=== PATIENT | male | born 1945 | race Caucasian/White ===

== ENCOUNTER 2018-07-11 11:37 | Emergency (ER) | payer OTHER, MEDICAID ==
[~2018-07-11] VITALS: Ht 177.8 cm; Wt 89.8 kg
[~2018-07-11 11:37] MED LIST: ACET-2154 PO; ASPI-605 PO; ATOR10TA PO; BENA20TA9 PO; CHOL20004 PO; METF-495 PO; METO50TA16 PO
[2018-07-11 12:16] LABS: *BILIRUBIN,URIN NEGATIVE (NEGATIVE); *BLOOD, URINE NEGATIVE (NEGATIVE); *CLARITY,URINE CLEAR (CLEAR); *COLOR,URINE YELLOW (YELLOW); *KETONES,URINE NEGATIVE (NEGATIVE); LEUKOCYTE ESTERASE ,URINE TRACE (NEGATIVE); NITRITE, URINE NEGATIVE (NEGATIVE); PH,URINE 8.5 (5.0-8.0); UGLUCOSE NEGATIVE (NEGATIVE)
[2018-07-11 12:18] LABS: BASOPHILS # (AUTO) 0.1 K/uL (0.0-8.0); BASOPHILS % (AUTO) 1.2 % (0.0-2.0); EOSINOPHILS # (AUTO) 0.1 K/uL (0.0-0.7); EOSINOPHILS % (AUTO) 0.8 % (0.0-7.0); HEMATOCRIT 43.9 % (36.7-47.1); HEMOGLOBIN 15.2 g/dL (12.5-16.3); LYMPHOCYTES # (AUTO) 2.8 K/uL (20.0-40.0); LYMPHOCYTES % (AUTO) 28.8 % (20.5-51.5); MEAN CORPUSCULAR HEMOGLOBIN 31.5 uug (23.8-33.4); MEAN CORPUSCULAR HGB CONC 35 g/dL (32.5-36.3); MEAN CORPUSCULAR VOLUME 91.4 fL (73.0-96.2); MONOCYTES # (AUTO) 1.2 K/uL (2.0-10.0); NEUTROPHILS # (AUTO) 5.6 K/uL (1.8-8.9); NEUTROPHILS % (AUTO) 57.2 % (38.5-71.5); PLATELET COUNT (AUTO) 159 K/uL (152-348); RED BLOOD CELL COUNT(AUTO) 4.81 MIL/uL (4.06-5.63); WHITE BLOOD COUNT (AUTO) 9.8 K/uL (3.6-10.2)
[2018-07-11 12:19] LABS: CARBON DIOXIDE 30 mmol/L (21-32); CHLORIDE 96 mmol/L (98-107); GLUCOSE 92 mg/dL (74-106); POTASSIUM 3.3 mmol/L (3.5-5.1); UREA NITROGEN, BLOOD 10 mg/dL (7-18)
--- NOTE | 2018-07-11 12:19 | NUR ---
PT IS IN ROOM #2B. DR KIRKPATRICK EVALUATED THE PT.
[2018-07-11 12:25] LABS: BACTERIA,URINE FEW /HPF (NONE SEEN); RBC,URINE NONE SEEN /HPF (0-3); SQUAMOUS EPITHELIAL CELL,UR FEW /HPF (NONE SEEN); WBC,URINE 0-3 /HPF (0-3)
[2018-07-11 12:25] LABS: ALANINE AMINOTRANSFERASE 42 U/L (16-63); ALKALINE PHOSPHATASE 51 U/L (50-136); ASPARTATE AMINOTRANSFERASE 22 U/L (15-37); BILIRUBIN,DIRECT 0.2 mg/dL (0.0-0.2); BILIRUBIN,TOTAL 0.6 mg/dL (0.2-1.0); LIPASE 164 U/L (73-393); TOTAL PROTEIN, SERUM 7.8 g/dL (6.4-8.2)
[2018-07-11] MEDS ORDERED: LISI1TAB11 PO (12:34)
[2018-07-11] MEDS ORDERED: GABA-532 PO (12:34)
[2018-07-11] MEDS ORDERED: GLIP5TAB13 PO (12:34)
[2018-07-11] MEDS ORDERED: LEVOFLOXACIN 500 MG TABLET ONE (14:58)
[2018-07-11] MEDS ORDERED: METRONIDAZOLE 500 MG TABLET ONE (14:58)
[2018-07-11] MEDS ORDERED: LEVOFLOXACIN 500 MG TABLET PO ONE (15:00)
[2018-07-11] MEDS ORDERED: METRONIDAZOLE 500 MG TABLET PO ONE (15:00)
--- NOTE | 2018-07-11 15:05 | NUR ---
PT WAS D/C'd TO HOME. D/C INSTRUCTIONS GIVEN TO THE PT.
[2018-07-11 15:06] VITALS: BP 149/87
== END 2018-07-11 15:07 | disposition home or self-care (01) ==
LOC: ER 11:41
DX: K57.32 Diverticulitis of large intestine without perforation or abscess without bleeding (principal); I10 Essential (primary) hypertension; E11.9 Type 2 diabetes mellitus without complications; Z79.82 Long term (current) use of aspirin; Z79.899 Other long term (current) drug therapy
CPT/HCPCS: 36415; 70030-TC; 83690; 85025; 93005; A4663